=== PATIENT | male | born 1995 | race Caucasian/White ===

== ENCOUNTER 2018-06-18 12:54 | Emergency (ER) | payer OTHER ==
[2018-06-18 13:15] VITALS: BP 135/76
[2018-06-18] MEDS ORDERED: TETANUS/DIPHTHERIA/PERTUSSIS 0.5 ML SYRINGE IM ONE (13:48)
[2018-06-18] MEDS ORDERED: BUFFERED LIDOCAINE 10 ML SYRINGE SUBQ STA (13:48)
--- NOTE | 2018-06-18 13:49 | ED Physician Documentation ---
PD HPI UPPER EXT INJURY - Stated complaint Stated Complaint: HAND LAC - Chief complaint Chief Complaint: Laceration - History obtained from History obtained from: Patient - History of Present Illness Location: Left (Left-handed gentleman who cut his left thumb on broken glass at home just prior to arrival, tetanus is unknown.) Review of Systems Constitutional: denies: Fever, Chills, Myalgias Throat: reports: Reviewed and negative Cardiac: reports: Reviewed and negative Respiratory: reports: Reviewed and negative PD PAST MEDICAL HISTORY - Present Medications Home Medications: Ambulatory Orders Medication Instructions Recorded Confirmed No Known Home Medications 06/18/18 06/18/18 - Allergies Allergies/Adverse Reactions: Allergies Allergy/AdvReac Type Severity Reaction Status Date / Time Penicillins Allergy Unknown Verified 06/18/18 13:15 PD ED PE NORMAL - Vitals Vital signs reviewed: Yes - General General: Alert and oriented X 3, No acute distress - Extremities Extremities: Other (On the ulnar side of the left thumb at the level of the proximal phalanx there is a 1 cm tissue defect/avulsion without intact skin. There is nothing to suture. It is not deep. It is actively bleeding. without distal neurovascular compromise.) - Neuro Neuro: Alert and oriented X 3, Normal speech Results - Vitals Vitals: Vital Signs - 24 hr 06/18/18 13:13 Temperature 36.6 C Heart Rate 98 Respiratory 16 Rate Blood Pressure 135/76 H O2 Saturation 98 Oxygen O2 Source Room air Procedures - General procedure General procedure: The wound was locally infiltrated with buffered lidocaine without epinephrine and then there were some copiously bleeding areas that were cauterized. It was irrigated. Then the wound was dressed with Gelfoam and tube gauze. Departure - Departure Disposition: 01 Home, Self Care Clinical Impression: Avulsion of skin of finger Qualifiers: Encounter type: initial encounter Qualified Code(s): S61.209A - Unspecified open wound of unspecified finger without damage to nail, initial encounter Condition: Good Record reviewed to determine appropriate education?: Yes Instructions: ED Avulsion Dermal Comments: As discussed leave the current dressing on until Monday. After that you can easily wash it with soap and water and then all you need to do is apply Neosporin and a bandage. We will probably need to keep it covered like this for about 2 weeks until the body heals it in. You should follow-up with your doctor in about a week for a wound check. Your blood pressure was elevated today on check into the emergency department. This does not mean that you have hypertension, it is a common phenomenon to come to the emergency department and have elevated blood pressure. I recommend that you see your primary care physician within the week to have it rechecked when you are feeling better.
== END 2018-06-18 14:13 | disposition home or self-care (01) ==
LOC: ED 12:54
DX: S61.012A Laceration without foreign body of left thumb without damage to nail, initial encounter (principal); W25.XXXA Contact with sharp glass, initial encounter; Y92.009 Unspecified place in unspecified non-institutional (private) residence as the place of occurrence of the external cause; R03.0 Elevated blood-pressure reading, without diagnosis of hypertension; Z23 Encounter for immunization
CPT/HCPCS: 90471; 99282; 99283